=== PATIENT | female | born 1970 | race Caucasian/White ===

== ENCOUNTER 2017-10-11 16:08 | Emergency (ER) | payer BC, MEDICAID, SELFPAY ==
[2017-10-11 16:08] VITALS: BP 102/71; PULSE 91; RESP 20; TEMP 36.4; O2SAT 100; BMI 58.5
--- NOTE | 2017-10-11 16:54 | ED.VISSUMM ---
- ER Visit Summary Date of Service: 10/11/17 Chief Complaint: [] Left lower extremity poorly healing laceration occurred 2 weeks ago History of Present Illness: The patient is a 47 F [] history of end-stage renal disease on dialysis, has diabetes, takes Lantus does not routinely monitor her blood sugars, reports 2 weeks ago she simply fell on her left lower leg suffered laceration to what appears to the suprapatellar area and that has poorly healed been seen by her physicians as recently as yesterday she is on 2 different antibiotics started yesterday, she has been referred to wound care center to be seen next week she presents today that she just wanted her wound checked again today there is no change to the wound she does not usually check her blood sugar but she feels that her other health conditions have been stable including her diabetes and her dialysis which she has been going to without difficulty she is eating and drinking well she just is concerned the wound will not close Physical Examination: [] She is a large woman head neck chest unremarkable there is a left upper extremity dialysis fistula has a good thrill, the left lower leg there is a 2 cm laceration to it appears to be the superior patellar region, it has some surrounding redness it has some minimal pinkish drainage to it there is no fluctuance or crepitance no signs of foreign body there were some retained suture material which we had nursing remove she had full flexion-extension of her knee without difficulty there was no pain with range of motion to the knee there is no signs at this wound involved the knee structures or had any type of intra-articular involvement there is no crepitance subcu air, she indicates she is walking without difficulty, she indicates has been no change in the wound in any way, she has been using full-strength peroxide which I told her to stop using and rather use a mild cleansing soap Test Results: [] Emergency Department Course and Treatment: [] I explained to her we could do screening labs etc. x-rays etc. but she indicates that her general health has been good she does not wish to have the x-rays done she deferred that at this time we did cleanse the wound apply local wound care, she standing antibiotics we gave her special wound care ointment Aquacel to use she has been referred to Dr. deonna Puentes plastic surgery given the complicated nature of the wound and also to the local [facility] wound care center with the hope she can be seen sooner and she will return for change in symptoms and she is comfortable with this plan understands that she may require further management including further surgical debridement skin grafting or other therapies this is a complicated wound and she must follow-up with plastic surgery for wound care center, I further suggested that she keep a close her eyes and track her diabetes Treatment Plan: [] Disposition: [] Home stable Impression: [] Left lower extremity chronic poorly healing wound, history of diabetes end-stage renal disease This note was generated with [employer] dictation software. It may contain incorrect words, spelling, and punctuation that were not noted in review of the chart prior to signing ED Disposition - Plan for ED Patient: Chief Complaint: Laceration Instructions: ED Laceration All Referrals: Sheri Bolden [Primary Care Provider] - Marcell Goddard MD [STAFF PHYSICIAN] -
--- NOTE | 2017-10-11 17:00 | ED.DEP ---
ED Disposition - Plan for ED Patient: Chief Complaint: Laceration Instructions: ED Laceration All Referrals: Sheri Bolden [Primary Care Provider] - Marcell Goddard MD [STAFF PHYSICIAN] -
[2017-10-11 17:25] VITALS: BP 122/75; PULSE 88; RESP 16; O2SAT 99
[2017-10-11] MEDS: Mineral Oil/Petrolatum Cr 1.75oz Bottle 1 APPLIC TOPICAL (17:26)
== END 2017-10-11 17:27 | disposition home or self-care (01) ==
LOC: ED 17:03
PROVIDERS: Emergency Provider Emergency Medicine; Family Provider Internal Medicine; PCP Internal Medicine
DX: S81.812D Laceration without foreign body, left lower leg, subsequent encounter (principal); L03.116 Cellulitis of left lower limb; W19.XXXD Unspecified fall, subsequent encounter; Z79.4 Long term (current) use of insulin; Z79.899 Other long term (current) drug therapy; Z48.02 Encounter for removal of sutures; E11.22 Type 2 diabetes mellitus with diabetic chronic kidney disease; N18.6 End stage renal disease; Z99.2 Dependence on renal dialysis
CPT/HCPCS: 99282

== ENCOUNTER 2017-11-09 11:30 | Outpatient (RCR) | payer BC, MEDICAID, SELFPAY ==
[2017-10-26 09:29] VITALS: BP 131/106; PULSE 88; RESP 18; TEMP 37; BMI 58.5
[2017-10-26 11:50] LABS: Absolute Lymphocyte Count 0.66 X10^3/ul (0.83-4.51); Absolute Neutrophil Count 2.7 X10^3/uL (2.0-7.7); Basophil# 0.01 X10^3/uL; Basophil% 0.3 % (0-1); Eosinophil# 0.08 X10^3/uL; Eosinophils% 2.2 % (0-5); Hematocrit 29.3 % (37-47); Hemoglobin 9.8 g/dl (12.0-15.0); Lymphocyte # 0.66 X10^3/ul (4.0); Lymphocyte % 17.9 % (19-41); Mean Corp Hgb Conc 33.4 g/gl (32-36); Mean Corpuscular Hgb 32.5 pg (27.0-32.0); Mean Platelet Vol. 9.1 fl (6.2-12.0); Monocyte# 0.23 X10^3/uL; Monocyte% 6.2 % (0-10); Neutrophil % 73.1 % (47-70); Platelet Count 114 K/mm3 (150-450); RBC Distribution Width CV 14.2 % (11.6-14.6); RBC Distribution Width SD 47.6 fl (35.1-43.9); Red Blood Count 3.02 M/mm3 (4.2-5.4); White Blood Count 3.7 K/mm3 (4.4-11.0)
[2017-10-26 11:51] LABS: POSITIVE COUNT NO; POSITIVE DIFFERENTIAL NO; POSITIVE MORPHOLOGY NO
--- NOTE | 2017-10-26 12:08 | PCM.WC.HP ---
(1) Renal failure Status: Acute Current Visit: Yes Code(s): N19 - Unspecified kidney failure (2) Traumatic wound dehiscence Status: Acute Current Visit: Yes Code(s): T81.33XA - Disruption of traumatic injury wound repair, initial encounter (3) Unspecified open wound, left knee, initial encounter Status: Acute Current Visit: Yes Code(s): S81.002A - Unspecified open wound, left knee, initial encounter (4) Infected wound Status: Acute Current Visit: Yes Code(s): T14.8XXA - Other injury of unspecified body region, initial encounter; L08.9 - Local infection of the skin and subcutaneous tissue, unspecified (5) Malnutrition Status: Acute Current Visit: Yes Code(s): E46 - Unspecified protein-calorie malnutrition (6) Morbid obesity Status: Acute Current Visit: Yes Code(s): E66.01 - Morbid (severe) obesity due to excess calories (7) Cellulitis, leg Status: Acute Current Visit: Yes Code(s): L03.119 - Cellulitis of unspecified part of limb History of Present Illness Date of Service: 10/26/17 Chief Complaint: Follow-up open ulcer left knee History of Wound: 47-year-old white female history of a fall approximately 5 weeks ago was sent to the emergency room where they sutured it and it dehisced 2 weeks later. Has been seen at [facility] and was given gauze to cover patient sustained a huge infection and now has an area inferior to the ulcer that is tender and warm and the skin is swollen. Cultures were obtained today. Patient is also a renal failure on dialysis patient she is also diabetic. And she is also morbid obese. We will also check lab work for her pre-albumin hemoglobin A1c and a complete blood count. Past Medical History Past Medical History: Dehisced open ulcer left knee, renal failure morbid obesity diabetes Allergies/Adverse Reactions: Allergies No Known Allergies Allergy (Verified 10/26/17 09:54) Home Medications: Ambulatory Orders Medication Instructions Recorded Budesonide/Formoterol 160/4.5 2 puff INHALATION BID 12/25/13 [Symbicort 160/4.5 Mcg Inhaler (SP)] Hydroxychloroquine [Plaquenil] 400 mg PO DAILY 12/25/13 Insulin Detemir [Levemir Flextouch] 25 unit SQ BID 12/25/13 Montelukast [Singulair] 10 mg PO DAILY 12/25/13 Multivitamins,Ther W-Minerals 1 tablet PO DAILY 12/25/13 [Multivitamin With Minerals] Omeprazole [Prilosec] 20 mg PO BID 12/25/13 Albuterol IH (ProAir) [Proair Hfa 1 puff INHALATION Q4H PRN PRN 10/26/17 (SP)Vent Pts] Atorvastatin Calcium [Lipitor] mg PO QHS 10/26/17 Clonidine HCl mg PO TID 10/26/17 Folic Acid/Vit Bcomp,C [Renal-Gregoria 0.8 mg PO DAILY 10/26/17 Tablet] Furosemide [Lasix] 20 mg PO DAILY 10/26/17 Hydrocodone/Acetaminophen [[place] 1 each PO Q4H PRN PRN 10/26/17 5-325 Tablet] Tocilizumab [Actemra] 162 mg SQ QWEEK 10/26/17 Venlafaxine HCl [Effexor] mg PO DAILY 10/26/17 buPROPion tablets [Wellbutrin mg PO BID 10/26/17 tablets] busPIRone [Buspar] 5 mg PO DAILY PRN 10/26/17 traZODone [Desyrel] 50 mg PO QHS 10/26/17 Lives: Alone Smoking Status: Never smoker Review of Systems Constitutional: Denies: Chills, Fever Eyes: Denies: Blurred vision, Drainage, Pain HEENT: Denies: Difficulty Hearing, Difficulty Swallowing, Sore Throat, Visual Changes Cardiovascular: Denies: Chest Pain, Palpitations, Syncope Respiratory: Denies: Cough, Shortness of Breath Gastrointestinal: Denies: Abdominal Pain, Nausea, Vomiting Genitourinary: Denies: Dysuria, Frequency Musculoskeletal: Denies: Joint Pain, Muscle pain Skin: Denies: Jaundice, Rash Neurological: Denies: Balance problems, Change in Speech, Difficulty swallowing, Focal weakness Psychiatric: Denies: Anxiety, Depression Endocrine: Denies: Change in Body Habitus Hematologic/ Lymphatic: Denies: Adenopathy - Physical Exam Vital Signs Temp Pulse Resp BP 98.6 F 88 18 131/106 H 10/26/17 09:29 10/26/17 09:29 10/26/17 09:29 10/26/17 09:29 General: Oriented x3, Cooperative, Well developed HEENT: Atraumatic, PERRLA Oral: Moist Mucosa Neck: Supple, No JVD Lungs: Clear to auscultation, Normal air movement Cardiovascular: Regular rate, Regular Rhythm Abdomen: Bowel Sounds Present, Soft, Non Tender, No Hepato-splenomegaly Extremities: No clubbing, No edema Skin: Ulcer/ Wound - In ulcer left knee Wound Measurements and Assessment WC - Nurse 1 - General Ulcer Measurement Start: 10/26/17 09:28 Freq: Status: Active Protocol: Activity Type Activity Date Activity User E-Sign Co-Sign Detail Recorded Client Recorded Date Recorded By Document 10/26/17 09:29 [facility] [id number] 10/26/17 09:48 [facility] 10/26/17 09:29 Wound Center Nurse 1 [Ulcer Assessment] #1- LT KNEE -Combined with other wound No -Current Size (cm) - Length 1.7 -Current Size (cm) - Width 6.4 -Current Size (cm) - Depth 1.3 -Total Square Cm 10.88 -Date of Last Picture (Recall this 10/26/17 field) -Photo Taken Yes -Epithelialization None Present -Tunneling Yes -Tunneling Position (O'clock) 2 -Tunneling Distance (cm) 2.2 -Tunneling Position #2 (O'clock) 8 -Tunneling Distance #2 (cm) 3.9 -Exudate Amt Large (67-100%) -Exudate Type Serosanguineous -Wound Margin Distinct, Outline Attached -Granulation Amt Large (67-100%) -Granulation Quality Red -Slough/Fibrin Yes -Necrosis Amt Small (1-33%) -Necrotic Tissue Type Adherent Slough -Texture (Cassie-wound Skin Appearance) Scarring -Moisture (Cassie-wound Skin Appearance Dry/Scaly ) -Color (Cassie-wound Skin Appearance) Ecchymosis Erythema -Temperature (Cassie-wound Skin No Abnormality Appearance) (Pt Warm) -Tenderness on Palpation (Cassie-wound No Skin Appearance) -Ulcer Cleansing Rinsed/ Irrigated with Saline -Foul Odor after Cleansing No -Anesthetic Used 4% Lidocaine Solution 5% Lidocaine Gel [Edema Assessment] -Lower Limb Edema Present Yes -Right Calf (cm) 44 -Right Ankle (cm) 25 -Left Calf (cm) 45 -Left Ankle (cm) 26.6 WC - Nurse 2 - General Ulcer CM Notes Start: 10/26/17 09:28 Freq: Status: Active Protocol: Activity Type Activity Date Activity User E-Sign Co-Sign Detail Recorded Client Recorded Date Recorded By Document 10/26/17 10:11 MW [id number] 10/26/17 10:17 MW 10/26/17 10:11 Wound Center Nurse 2 [Procedure/Treatment] #1- LT KNEE -Time 10:12 -Correct Patient Yes -Correct Side, Site, Position Yes -Correct Procedure Yes -Procedure Performed Yes -Type of Procedure Debridement -Clinical Debridement Subcutaneous -Post Debridement Size (cm) - Length 1.7 -Post Debridement Size (cm) - Width 4.6 -Post Debridement Size (cm) - Depth 2.2 -Total Square Cm 7.82 -Wound/Ulcer Outcome Not Healed -Ulcer Cleansing Rinsed/ Irrigated with Saline -Foul Odor after Cleansing No -Bioengineered Tissue No -Bleeding Controlled with Pressure -Treatment Response Procedure Tolerated Well [See Physician Procedure note for Specifics] Pain Scale: 0-10 Numeric [Pain] -Is Patient Pain Free? Yes Musculoskeletal: No Tenderness to Palpation of Joints or Extremities Lymphatic: No Cervical, Supraclavicular, or Inguinal Adenopathy Neurological: Cranial nerves II-XII grossly intact, Neuro grossly intact Psych/Mental Status: Normal Affect, Appropriate Debridement Note Post-Debridement Measurements/Treatment - Nurse 2 - General Ulcer CM Notes Start: 10/26/17 09:28 Freq: Status: Active Protocol: Activity Type Activity Date Activity User E-Sign Co-Sign Detail Recorded Client Recorded Date Recorded By Document 10/26/17 10:11 MW [id number] 10/26/17 10:17 MW 10/26/17 10:11 Wound Center Nurse 2 #1- LT KNEE -Time 10:12 -Correct Patient Yes -Correct Side, Site, Position Yes -Correct Procedure Yes -Procedure Performed Yes -Type of Procedure Debridement -Clinical Debridement Subcutaneous -Post Debridement Size (cm) - Length 1.7 -Post Debridement Size (cm) - Width 4.6 -Post Debridement Size (cm) - Depth 2.2 -Total Square Cm 7.82 -Wound/Ulcer Outcome Not Healed -Ulcer Cleansing Rinsed/ Irrigated with Saline -Foul Odor after Cleansing No -Bioengineered Tissue No -Bleeding Controlled with Pressure -Treatment Response Procedure Tolerated Well Pain Scale: 0-10 Numeric Is Patient Pain Free? Yes Wound debrided: Open ulcer knee Type of Debridement: Excisional debridement Anesthesia Used: 5% Lidocaine Gel Depth: Down to and including healthy tissue, in the subcutaneous layer, to muscle Percentage of wound debrided: 100 Instrument Used: 5mm curette Tissue Removed: Fibrin Severity: Limited To Skin Breakdown Amount of bleeding with debridement: Mild Bleeding Controlled with: Compression and gauze Patient tolerated procedure well Assessment/Plan Pre-albumin hemoglobin A1c the and aerobic and anaerobic cultures obtained Active Problems Renal failure (Acute) Traumatic wound dehiscence (Acute) Unspecified open wound, left knee, initial encounter (Acute) Infected wound (Acute) Malnutrition (Acute) Morbid obesity (Acute) Cellulitis, leg (Acute) Assessment: Open ulcer left knee. Dehiscence of a left knee. Morbid obesity. Renal failure. Malnutrition. Infected left knee. Cellulitis left knee Plan: Wash leg with Hibiclens. Pack with Aquacel silver moistened thick layer of gauze ABD Romeo wrap to the area from toes to knee. Follow-up one week
--- NOTE | 2017-10-26 12:12 | HP.PCM_ITS ---
(1) Renal failure Status: Acute Current Visit: Yes Code(s): N19 - Unspecified kidney failure (2) Traumatic wound dehiscence Status: Acute Current Visit: Yes Code(s): T81.33XA - Disruption of traumatic injury wound repair, initial encounter (3) Unspecified open wound, left knee, initial encounter Status: Acute Current Visit: Yes Code(s): S81.002A - Unspecified open wound , left knee, initial encounter (4) Infected wound Status: Acute Current Visit: Yes Code(s): T14.8XXA - Other injury of unspecified body region, initial encounter; L08.9 - Local infection of the skin and subcutaneous tissue, unspecified (5) Malnutrition Status: Acute Current Visit: Yes Code(s): E46 - Unspecified protein-calorie malnutrition (6) Morbid obesity Status: Acute Current Visit: Yes Code(s): E66.01 - Morbid (severe) obesity due to excess calories (7) Cellulitis, leg Status: Acute Current Visit: Yes Code(s): L03.119 - Cellulitis of unspecified part of limb History of Present Illness Date of Service: 10/26/17 Chief Complaint: Follow-up open ulcer left knee History of Wound: 47-year-old white female history of a fall approximately 5 weeks ago was sent to the emergency room where they sutured it and it dehisced 2 weeks later. Has been seen at [facility] and was given gauze to cover patient sustained a huge infection and now has an area inferior to the ulcer that is tender and warm and the skin is swollen. Cultures were obtained today. Patient is also a renal failure on dialysis patient she is also diabetic. And she is also morbid obese. We will also check lab work for her pre-albumin hemoglobin A1c and a complete blood count. Past Medical History Past Medical History: Dehisced open ulcer left knee, renal failure morbid obesity diabetes Allergies/Adverse Reactions: Allergies No Known Allergies Allergy (Verified 10/26/17 09:54) Home Medications: Ambulatory Orders Medication Instructions Recorded Budesonide/Formoterol 160/4.5 2 puff INHALATION BID 12/25/13 [Symbicort 160/4.5 Mcg Inhaler (SP)] Hydroxychloroquine [Plaquenil] 400 mg PO DAILY 12/25/13 Insulin Detemir [Levemir Flextouch] 25 unit SQ BID 12/25/13 Montelukast [Singulair] 10 mg PO DAILY 12/25/13 Multivitamins,Ther W-Minerals 1 tablet PO DAILY 12/25/13 [Multivitamin With Minerals] Omeprazole [Prilosec] 20 mg PO BID 12/25/13 Albuterol IH (ProAir) [Proair Hfa 1 puff INHALATION Q4H PRN PRN 10/26/17 (SP)Vent Pts] Atorvastatin Calcium [Lipitor] mg PO QHS 10/26/17 Clonidine HCl mg PO TID 10/26/17 Folic Acid/Vit Bcomp,C [Renal-Gregoria 0.8 mg PO DAILY 10/26/17 Tablet] Furosemide [Lasix] 20 mg PO DAILY 10/26/17 Hydrocodone/Acetaminophen [[place] 1 each PO Q4H PRN PRN 10/26/17 5-325 Tablet] Tocilizumab [Actemra] 162 mg SQ QWEEK 10/26/17 Venlafaxine HCl [Effexor] mg PO DAILY 10/26/17 buPROPion tablets [Wellbutrin mg PO BID 10/26/17 tablets] busPIRone [Buspar] 5 mg PO DAILY PRN 10/26/17 traZODone [Desyrel] 50 mg PO QHS 10/26/17 Lives: Alone Smoking Status: Never smoker Review of Systems Constitutional: Denies: Chills, Fever Eyes: Denies: Blurred vision, Drainage, Pain HEENT: Denies: Difficulty Hearing, Difficulty Swallowing, Sore Throat, Visual Changes Cardiovascular: Denies: Chest Pain, Palpitations, Syncope Respiratory: Denies: Cough, Shortness of Breath Gastrointestinal: Denies: Abdominal Pain, Nausea, Vomiting Genitourinary: Denies: Dysuria, Frequency Musculoskeletal: Denies: Joint Pain, Muscle pain Skin: Denies: Jaundice, Rash Neurological: Denies: Balance problems, Change in Speech, Difficulty swallowing , Focal weakness Psychiatric: Denies: Anxiety, Depression Endocrine: Denies: Change in Body Habitus Hematologic/ Lymphatic: Denies: Adenopathy - Physical Exam Vital Signs Temp Pulse Resp BP 98.6 F 88 18 131/106 H 10/26/17 09:29 10/26/17 09:29 10/26/17 09:29 10/26/17 09:29 General: Oriented x3, Cooperative, Well developed HEENT: Atraumatic, PERRLA Oral: Moist Mucosa Neck: Supple, No JVD Lungs: Clear to auscultation, Normal air movement Cardiovascular: Regular rate, Regular Rhythm Abdomen: Bowel Sounds Present, Soft, Non Tender, No Hepato-splenomegaly Extremities: No clubbing, No edema Skin: Ulcer/ Wound - In ulcer left knee Wound Measurements and Assessment WC - Nurse 1 - General Ulcer Measurement Start: 10/26/17 09:28 Freq: Status: Active Protocol: Activity Type Activity Date Activity User E-Sign Co-Sign Detail Recorded Client Recorded Date Recorded By Document 10/26/17 09:[address] [facility] [id number] 10/26/17 09:[address] [facility] 10/26/17 09:29 Wound Center Nurse 1 [Ulcer Assessment] #1- LT KNEE -Combined with other wound No -Current Size (cm) - Length 1.7 -Current Size (cm) - Width 6.4 -Current Size (cm) - Depth 1.3 -Total Square Cm 10.88 -Date of Last Picture (Recall this 10/26/17 field) -Photo Taken Yes -Epithelialization None Present -Tunneling Yes -Tunneling Position (O'clock) 2 -Tunneling Distance (cm) 2.2 -Tunneling Position #2 (O'clock) 8 -Tunneling Distance #2 (cm) 3.9 -Exudate Amt Large (67-100%) -Exudate Type Serosanguineous -Wound Margin Distinct, Outline Attached -Granulation Amt Large (67-100%) -Granulation Quality Red -Slough/Fibrin Yes -Necrosis Amt Small (1-33%) -Necrotic Tissue Type Adherent Slough -Texture (Cassie-wound Skin Appearance) Scarring -Moisture (Cassie-wound Skin Appearance Dry/Scaly ) -Color (Cassie-wound Skin Appearance) Ecchymosis Erythema -Temperature (Cassie-wound Skin No Abnormality Appearance) (Pt Warm) -Tenderness on Palpation (Cassie-wound No Skin Appearance) -Ulcer Cleansing Rinsed/ Irrigated with Saline -Foul Odor after Cleansing No -Anesthetic Used 4% Lidocaine Solution 5% Lidocaine Gel [Edema Assessment] -Lower Limb Edema Present Yes -Right Calf (cm) 44 -Right Ankle (cm) 25 -Left Calf (cm) 45 -Left Ankle (cm) 26.6 WC - Nurse 2 - General Ulcer CM Notes Start: 10/26/17 09:28 Freq: Status: Active Protocol: Activity Type Activity Date Activity User E-Sign Co-Sign Detail Recorded Client Recorded Date Recorded By Document 10/26/17 10:11 MW [id number] 10/26/17 10:17 MW 10/26/17 10:11 Wound Center Nurse 2 [Procedure/Treatment] #1- LT KNEE -Time 10:12 -Correct Patient Yes -Correct Side, Site, Position Yes -Correct Procedure Yes -Procedure Performed Yes -Type of Procedure Debridement -Clinical Debridement Subcutaneous -Post Debridement Size (cm) - Length 1.7 -Post Debridement Size (cm) - Width 4.6 -Post Debridement Size (cm) - Depth 2.2 -Total Square Cm 7.82 -Wound/Ulcer Outcome Not Healed -Ulcer Cleansing Rinsed/ Irrigated with Saline -Foul Odor after Cleansing No -Bioengineered Tissue No -Bleeding Controlled with Pressure -Treatment Response Procedure Tolerated Well [See Physician Procedure note for Specifics] Pain Scale: 0-10 Numeric [Pain] -Is Patient Pain Free? Yes Musculoskeletal: No Tenderness to Palpation of Joints or Extremities Lymphatic: No Cervical, Supraclavicular, or Inguinal Adenopathy Neurological: Cranial nerves II-XII grossly intact, Neuro grossly intact Psych/Mental Status: Normal Affect, Appropriate Debridement Note Post-Debridement Measurements/Treatment - Nurse 2 - General Ulcer CM Notes Start: 10/26/17 09:28 Freq: Status: Active Protocol: Activity Type Activity Date Activity User E-Sign Co-Sign Detail Recorded Client Recorded Date Recorded By Document 10/26/17 10:11 MW [id number] 10/26/17 10:17 MW 10/26/17 10:11 Wound Center Nurse 2 #1- LT KNEE -Time 10:12 -Correct Patient Yes -Correct Side, Site, Position Yes -Correct Procedure Yes -Procedure Performed Yes -Type of Procedure Debridement -Clinical Debridement Subcutaneous -Post Debridement Size (cm) - Length 1.7 -Post Debridement Size (cm) - Width 4.6 -Post Debridement Size (cm) - Depth 2.2 -Total Square Cm 7.82 -Wound/Ulcer Outcome Not Healed -Ulcer Cleansing Rinsed/ Irrigated with Saline -Foul Odor after Cleansing No -Bioengineered Tissue No -Bleeding Controlled with Pressure -Treatment Response Procedure Tolerated Well Pain Scale: 0-10 Numeric Is Patient Pain Free? Yes Wound debrided: Open ulcer knee Type of Debridement: Excisional debridement Anesthesia Used: 5% Lidocaine Gel Depth: Down to and including healthy tissue, in the subcutaneous layer, to muscle Percentage of wound debrided: 100 Instrument Used: 5mm curette Tissue Removed: Fibrin Severity: Limited To Skin Breakdown Amount of bleeding with debridement: Mild Bleeding Controlled with: Compression and gauze Patient tolerated procedure well Assessment/Plan Pre-albumin hemoglobin A1c the and aerobic and anaerobic cultures obtained Active Problems Renal failure (Acute) Traumatic wound dehiscence (Acute) Unspecified open wound, left knee, initial encounter (Acute) Infected wound (Acute) Malnutrition (Acute) Morbid obesity (Acute) Cellulitis, leg (Acute) Assessment: Open ulcer left knee. Dehiscence of a left knee. Morbid obesity. Renal failure. Malnutrition. Infected left knee. Cellulitis left knee Plan: Wash leg with Hibiclens. Pack with Aquacel silver moistened thick layer of gauze ABD Romeo wrap to the area from toes to knee. Follow-up one week
[2017-10-26 12:17] LABS: Prealbumin 45.4 mg/dL (20.0-40.0)
[2017-10-26 12:28] LABS: Hemoglobin A1c 7.7 % (4.2-6.3)
[2017-11-02 11:22] VITALS: BP 126/85; PULSE 87; RESP 18; TEMP 36.6; BMI 58.5
--- NOTE | 2017-11-02 12:34 | PCM.WC.PN ---
(1) Renal failure Status: Acute Current Visit: Yes Qualifiers: Renal failure chronicity: chronic Code(s): N19 - Unspecified kidney failure (2) Traumatic wound dehiscence Status: Acute Current Visit: Yes Qualifiers: Encounter type: subsequent encounter Qualified Code(s): T81.33XD - Disruption of traumatic injury wound repair, subsequent encounter Code(s): T81.33XA - Disruption of traumatic injury wound repair, initial encounter (3) Unspecified open wound, left knee, initial encounter Status: Acute Current Visit: No Code(s): S81.002A - Unspecified open wound, left knee, initial encounter (4) Infected wound Status: Acute Current Visit: Yes Code(s): T14.8XXA - Other injury of unspecified body region, initial encounter; L08.9 - Local infection of the skin and subcutaneous tissue, unspecified (5) Malnutrition Status: Acute Current Visit: No Code(s): E46 - Unspecified protein-calorie malnutrition (6) Morbid obesity Status: Acute Current Visit: Yes Code(s): E66.01 - Morbid (severe) obesity due to excess calories (7) Cellulitis, leg Status: Acute Current Visit: Yes Code(s): L03.119 - Cellulitis of unspecified part of limb Type of Wound Date of Service: 11/02/17 Chief Complaint: Follow-up open ulcer left knee History of Wound: 47-year-old white female history of a fall approximately 5 weeks ago was sent to the emergency room where they sutured it and it dehisced 2 weeks later. Has been seen at [place] [facility] and was given gauze to cover patient sustained a huge infection and now has an area inferior to the ulcer that is tender and warm and the skin is swollen. Cultures were obtained today. Patient is also a renal failure on dialysis patient she is also diabetic. And she is also morbid obese. We will also check lab work for her pre-albumin hemoglobin A1c and a complete blood count. Progress of Wound: The wound is smaller in size but she has developed a tunnel at 6:00 that is quite big. The pain adjacent to the wound is improving. She does have anaerobes and aerobic bacteria growing. We will currently start her on Augmentin and metronidazole for that. She is still going to continue packing with the Aquacel silver and we will order a wound VAC for her. - Physical Exam Vital Signs Temp Pulse Resp BP 97.9 F 87 18 126/85 H 11/02/17 11:22 11/02/17 11:22 11/02/17 11:22 11/02/17 11:22 General: Oriented x3, Cooperative, Well developed HEENT: Atraumatic, PERRLA Oral: Moist Mucosa Neck: Supple, No JVD Lungs: Clear to auscultation, Normal air movement Cardiovascular: Regular rate, Regular Rhythm Abdomen: Bowel Sounds Present, Soft, Non Tender, No Hepato-splenomegaly Extremities: No clubbing, No edema Skin: Ulcer/ Wound - Left knee wound Wound Measurements and Assessment WC - Nurse 1 - General Ulcer Measurement Start: 10/26/17 09:28 Freq: Status: Active Protocol: Activity Type Activity Date Activity User E-Sign Co-Sign Detail Recorded Client Recorded Date Recorded By Document 11/02/17 11:22 DL [id number] 11/02/17 11:32 DL 11/02/17 11:22 Wound Center Nurse 1 [Ulcer Assessment] #1- LT KNEE -Current Size (cm) - Length 1.5 -Current Size (cm) - Width 4 -Current Size (cm) - Depth 1.5 -Total Square Cm 6.0 -Photo Taken No -Undermining/Tunneling Starts (O' 6 clock) -Undermining/Tunneling Ends (O'clock) 7 -Maximum Distance (cm) 3.3 -Circular Undermining No -Exudate Type Serosanguineous -Wound Margin Distinct, Outline Attached -Granulation Amt Large (67-100%) -Granulation Quality Red -Necrosis Amt Small (1-33%) -Necrotic Tissue Type Adherent Slough -Texture (Cassie-wound Skin Appearance) Localized Edema Scarring -Moisture (Cassie-wound Skin Appearance No Abnormality ) -Color (Cassie-wound Skin Appearance) Rubor -Temperature (Cassie-wound Skin No Abnormality Appearance) (Pt Warm) -Ulcer Cleansing Wound Cleanser -Foul Odor after Cleansing No -Anesthetic Used 4% Lidocaine Solution [Edema Assessment] -Left Calf (cm) 43.5 -Left Ankle (cm) 23 WC - Nurse 2 - General Ulcer CM Notes Start: 10/26/17 09:28 Freq: Status: Active Protocol: Activity Type Activity Date Activity User E-Sign Co-Sign Detail Recorded Client Recorded Date Recorded By Document 11/02/17 11:42 MW [id number] 11/02/17 11:53 MW 11/02/17 11:42 Wound Center Nurse 2 [Procedure/Treatment] #1- LT KNEE -Time 11:42 -Correct Patient Yes -Correct Side, Site, Position Yes -Correct Procedure Yes -Procedure Performed Yes -Type of Procedure Debridement -Clinical Debridement Subcutaneous -Post Debridement Size (cm) - Length 1.2 -Post Debridement Size (cm) - Width 4.0 -Post Debridement Size (cm) - Depth 1.7 -Total Square Cm 4.80 -Wound/Ulcer Outcome Not Healed -Ulcer Cleansing Rinsed/ Irrigated with Saline -Foul Odor after Cleansing No -Bioengineered Tissue No -Bleeding Controlled with Pressure -Other tunnel @ 6 - 6. 4cm -Treatment Response Procedure Tolerated Well [See Physician Procedure note for Specifics] Pain Scale: 0-10 Numeric [Pain] -Is Patient Pain Free? Yes Musculoskeletal: No Tenderness to Palpation of Joints or Extremities Lymphatic: No Cervical, Supraclavicular, or Inguinal Adenopathy Neurological: Cranial nerves II-XII grossly intact, Neuro grossly intact Psych/Mental Status: Normal Affect, Appropriate Debridement Note Post-Debridement Measurements/Treatment WC - Nurse 2 - General Ulcer CM Notes Start: 10/26/17 09:28 Freq: Status: Active Protocol: Activity Type Activity Date Activity User E-Sign Co-Sign Detail Recorded Client Recorded Date Recorded By Document 10/26/17 10:11 MW [id number] 10/26/17 10:17 MW Document 11/02/17 11:42 MW [id number] 11/02/17 11:53 MW 10/26/17 11/02/17 10:11 11:42 Wound Center Nurse 2 #1- LT KNEE -Time 10:12 11:42 -Correct Patient Yes Yes -Correct Side, Site, Position Yes Yes -Correct Procedure Yes Yes -Procedure Performed Yes Yes -Type of Procedure Debridement Debridement -Clinical Debridement Subcutaneous Subcutaneous -Post Debridement Size (cm) - Length 1.7 1.2 -Post Debridement Size (cm) - Width 4.6 4.0 -Post Debridement Size (cm) - Depth 2.2 1.7 -Total Square Cm 7.82 4.80 -Wound/Ulcer Outcome Not Healed Not Healed -Ulcer Cleansing Rinsed/ Rinsed/ Irrigated with Irrigated with Saline Saline -Foul Odor after Cleansing No No -Bioengineered Tissue No No -Bleeding Controlled with Pressure Pressure -Other tunnel @ 6 - 6. 4cm -Treatment Response Procedure Procedure Tolerated Well Tolerated Well Pain Scale: 0-10 Numeric Is Patient Pain Free? Yes Yes Wound debrided: Left knee wound Type of Debridement: Excisional debridement Anesthesia Used: 5% Lidocaine Gel Depth: Down to and including healthy tissue, in the subcutaneous layer, to muscle Instrument Used: 3mm curette Tissue Removed: Fibrin Amount of bleeding with debridement: Moderate Bleeding Controlled with: Compression and gauze Patient tolerated procedure well Assessment/Plan Active Problems Renal failure (Acute) Traumatic wound dehiscence (Acute) Infected wound (Acute) Morbid obesity (Acute) Cellulitis, leg (Acute) Assessment: Open ulcer left knee. Dehiscence of a left knee. Morbid obesity. Renal failure. Malnutrition. Infected left knee. Cellulitis left knee Plan: Wash leg with Hibiclens. Pack with Aquacel silver moistened thick layer of gauze ABD Romeo wrap to the area from toes to knee. As soon as she receives the wound VAC she is to call us and make arrangements. Chart the antibiotics and the antimicrobials. Follow-up one week
[2017-11-07 15:14] VITALS: BP 112/68; PULSE 90; RESP 18; TEMP 36.4; BMI 58.5
[2017-11-09 12:01] VITALS: BP 157/113; PULSE 81; RESP 18; TEMP 36.6; BMI 58.5
--- NOTE | 2017-11-09 12:31 | PCM.WC.PN ---
(1) Renal failure Status: Acute Current Visit: Yes Qualifiers: Renal failure chronicity: chronic Code(s): N19 - Unspecified kidney failure (2) Traumatic wound dehiscence Status: Acute Current Visit: Yes Qualifiers: Encounter type: subsequent encounter Qualified Code(s): T81.33XD - Disruption of traumatic injury wound repair, subsequent encounter Code(s): T81.33XA - Disruption of traumatic injury wound repair, initial encounter (3) Unspecified open wound, left knee, initial encounter Status: Acute Current Visit: No Code(s): S81.002A - Unspecified open wound, left knee, initial encounter (4) Infected wound Status: Acute Current Visit: Yes Code(s): T14.8XXA - Other injury of unspecified body region, initial encounter; L08.9 - Local infection of the skin and subcutaneous tissue, unspecified (5) Malnutrition Status: Acute Current Visit: No Code(s): E46 - Unspecified protein-calorie malnutrition (6) Morbid obesity Status: Acute Current Visit: Yes Code(s): E66.01 - Morbid (severe) obesity due to excess calories (7) Cellulitis, leg Status: Acute Current Visit: Yes Code(s): L03.119 - Cellulitis of unspecified part of limb Type of Wound Chief Complaint: Follow-up open ulcer left knee History of Wound: 47-year-old white female history of a fall approximately 5 weeks ago was sent to the emergency room where they sutured it and it dehisced 2 weeks later. Has been seen at [place] [facility] and was given gauze to cover patient sustained a huge infection and now has an area inferior to the ulcer that is tender and warm and the skin is swollen. Cultures were obtained today. Patient is also a renal failure on dialysis patient she is also diabetic. And she is also morbid obese. We will also check lab work for her pre-albumin hemoglobin A1c and a complete blood count. Progress of Wound: The wound is smaller in size but she has developed a tunnel at 6:00 that was 6 cm is down to 1 cm . The pain adjacent to the wound is improving. She does have anaerobes and aerobic bacteria growing. We will currently start her on Augmentin and metronidazole for that. She started the wound VAC on Sunday and is already seeing improvement at 125 mmHg were can increase it to 175 mmHg and have her come in 1 week for change. - Physical Exam Vital Signs Temp Pulse Resp BP 97.8 F 81 18 157/113 H 11/09/17 12:01 11/09/17 12:01 11/09/17 12:01 11/09/17 12:01 General: Oriented x3, Cooperative, Well developed HEENT: Atraumatic, PERRLA Oral: Moist Mucosa Neck: Supple, No JVD Lungs: Clear to auscultation, Normal air movement Cardiovascular: Regular rate, Regular Rhythm Abdomen: Bowel Sounds Present, Soft, Non Tender, No Hepato-splenomegaly, Obese Extremities: No clubbing, No edema Skin: Ulcer/ Wound - Left knee wound Wound Measurements and Assessment WC - Nurse 1 - General Ulcer Measurement Start: 10/26/17 09:28 Freq: Status: Active Protocol: Activity Type Activity Date Activity User E-Sign Co-Sign Detail Recorded Client Recorded Date Recorded By Document 11/07/17 15:14 [id number] 11/07/17 15:16 Document 11/09/17 12:01 [id number] 11/09/17 12:04 11/07/17 11/09/17 15:14 12:01 Wound Center Nurse 1 [Ulcer Assessment] #1- LT KNEE -Combined with other wound No No -Current Size (cm) - Length 1.1 0.9 -Current Size (cm) - Width 3.0 3.2 -Current Size (cm) - Depth 1.5 1.2 -Total Square Cm 3.30 2.88 -Photo Taken No No -Epithelialization Medium 34-66% Medium 34-66% -Tunneling No No -Undermining/Tunneling No No -Circular Undermining No No -Exudate Amt Medium (34-66%) Medium (34-66%) -Exudate Type Serosanguineous Sanguineous -Wound Margin Flat & Intact Thickened & Rolled Under -Granulation Amt Large (67-100%) Large (67-100%) -Granulation Quality Red [place] Red -Slough/Fibrin Yes No -Necrosis Amt Small (1-33%) -Necrotic Tissue Type Adherent Slough -Structure Exposed N/A -Texture (Cassie-wound Skin Appearance) Assessed Assessed Localized Edema -Moisture (Cassie-wound Skin Appearance Assessed Assessed ) Dry/Scaly Maceration -Color (Cassie-wound Skin Appearance) Assessed Assessed -Temperature (Cassie-wound Skin No Abnormality No Abnormality Appearance) (Pt Warm) (Pt Warm) -Tenderness on Palpation (Cassie-wound No No Skin Appearance) -Ulcer Cleansing Wound Cleanser Rinsed/ Irrigated with Saline -Foul Odor after Cleansing No No -Anesthetic Used 4% Lidocaine Solution [Edema Assessment] -Lower Limb Edema Present Yes -Left Calf (cm) 44 -Left Ankle (cm) 23.5 WC - Nurse 2 - General Ulcer CM Notes Start: 10/26/17 09:28 Freq: Status: Active Protocol: Activity Type Activity Date Activity User E-Sign Co-Sign Detail Recorded Client Recorded Date Recorded By Document 11/09/17 12:10 MW [id number] 11/09/17 12:13 MW 11/09/17 12:10 Wound Center Nurse 2 [Procedure/Treatment] #1- LT KNEE -Time 12:11 -Correct Patient Yes -Correct Side, Site, Position Yes -Correct Procedure Yes -Procedure Performed Yes -Type of Procedure Debridement -Clinical Debridement Subcutaneous -Post Debridement Size (cm) - Length 0.8 -Post Debridement Size (cm) - Width 3.0 -Post Debridement Size (cm) - Depth 1.0 -Total Square Cm 2.40 -Wound/Ulcer Outcome Not Healed -Ulcer Cleansing Rinsed/ Irrigated with Saline -Foul Odor after Cleansing No -Bioengineered Tissue No -Bleeding Controlled with Pressure -Treatment Response Procedure Tolerated Well [See Physician Procedure note for Specifics] Pain Scale: 0-10 Numeric [Pain] -Is Patient Pain Free? Yes Musculoskeletal: No Tenderness to Palpation of Joints or Extremities Lymphatic: No Cervical, Supraclavicular, or Inguinal Adenopathy Neurological: Cranial nerves II-XII grossly intact, Neuro grossly intact Psych/Mental Status: Normal Affect, Appropriate Debridement Note Post-Debridement Measurements/Treatment - Nurse 2 - General Ulcer CM Notes Start: 10/26/17 09:28 Freq: Status: Active Protocol: Activity Type Activity Date Activity User E-Sign Co-Sign Detail Recorded Client Recorded Date Recorded By Document 10/26/17 10:11 MW [id number] 10/26/17 10:17 MW Document 11/02/17 11:42 MW [id number] 11/02/17 11:53 MW Document 11/09/17 12:10 MW [id number] 11/09/17 12:13 MW 10/26/17 11/02/17 11/09/17 10:11 11:42 12:10 Wound Center Nurse 2 #1- LT KNEE -Time 10:12 11:42 12:11 -Correct Patient Yes Yes Yes -Correct Side, Site, Position Yes Yes Yes -Correct Procedure Yes Yes Yes -Procedure Performed Yes Yes Yes -Type of Procedure Debridement Debridement Debridement -Clinical Debridement Subcutaneous Subcutaneous Subcutaneous -Post Debridement Size (cm) - Length 1.7 1.2 0.8 -Post Debridement Size (cm) - Width 4.6 4.0 3.0 -Post Debridement Size (cm) - Depth 2.2 1.7 1.0 -Total Square Cm 7.82 4.80 2.40 -Wound/Ulcer Outcome Not Healed Not Healed Not Healed -Ulcer Cleansing Rinsed/ Rinsed/ Rinsed/ Irrigated with Irrigated with Irrigated with Saline Saline Saline -Foul Odor after Cleansing No No No -Bioengineered Tissue No No No -Bleeding Controlled with Pressure Pressure Pressure -Other tunnel @ 6 - 6. 4cm -Treatment Response Procedure Procedure Procedure Tolerated Well Tolerated Well Tolerated Well Pain Scale: 0-10 Numeric Is Patient Pain Free? Yes Yes Yes Wound debrided: Left knee wound Type of Debridement: Excisional debridement Anesthesia Used: 5% Lidocaine Gel Depth: Down to and including healthy tissue, in the subcutaneous layer Instrument Used: 7mm curette Tissue Removed: Fibrin Severity: Limited To Skin Breakdown Amount of bleeding with debridement: Moderate Bleeding Controlled with: Compression and gauze Patient tolerated procedure well Assessment/Plan Active Problems Renal failure (Acute) Traumatic wound dehiscence (Acute) Infected wound (Acute) Morbid obesity (Acute) Cellulitis, leg (Acute) Assessment: Open ulcer left knee. Dehiscence of a left knee. Morbid obesity. Renal failure. Malnutrition. Infected left knee. Cellulitis left knee Plan: Wash leg with Hibiclens. Increase wound VAC to 175 mmHg. Continue the antibiotics and the antimicrobials. Follow-up one week
--- NOTE | 2017-11-09 12:38 | PN.PCM_ITS ---
(1) Renal failure Status: Acute Current Visit: Yes Qualifiers: Renal failure chronicity: chronic Code(s): N19 - Unspecified kidney failure (2) Traumatic wound dehiscence Status: Acute Current Visit: Yes Qualifiers: Encounter type: subsequent encounter Qualified Code(s): T81.33XD - Disruption of traumatic injury wound repair, subsequent encounter Code(s): T81.33XA - Disruption of traumatic injury wound repair, initial encounter (3) Unspecified open wound, left knee, initial encounter Status: Acute Current Visit: No Code(s): S81.002A - Unspecified open wound, left knee, initial encounter (4) Infected wound Status: Acute Current Visit: Yes Code(s): T14.8XXA - Other injury of unspecified body region, initial encounter; L08.9 - Local infection of the skin and subcutaneous tissue, unspecified (5) Malnutrition Status: Acute Current Visit: No Code(s): E46 - Unspecified protein-calorie malnutrition (6) Morbid obesity Status: Acute Current Visit: Yes Code(s): E66.01 - Morbid (severe) obesity due to excess calories (7) Cellulitis, leg Status: Acute Current Visit: Yes Code(s): L03.119 - Cellulitis of unspecified part of limb Type of Wound Chief Complaint: Follow-up open ulcer left knee History of Wound: 47-year-old white female history of a fall approximately 5 weeks ago was sent to the emergency room where they sutured it and it dehisced 2 weeks later. Has been seen at [place] [facility] and was given gauze to cover patient sustained a huge infection and now has an area inferior to the ulcer that is tender and warm and the skin is swollen. Cultures were obtained today. Patient is also a renal failure on dialysis patient she is also diabetic. And she is also morbid obese. We will also check lab work for her pre-albumin hemoglobin A1c and a complete blood count. Progress of Wound: The wound is smaller in size but she has developed a tunnel at 6:00 that was 6 cm is down to 1 cm . The pain adjacent to the wound is improving. She does have anaerobes and aerobic bacteria growing. We will currently start her on Augmentin and metronidazole for that. She started the wound VAC on Sunday and is already seeing improvement at 125 mmHg were can increase it to 175 mmHg and have her come in 1 week for change. - Physical Exam Vital Signs Temp Pulse Resp BP 97.8 F 81 18 157/113 H 11/09/17 12:01 11/09/17 12:01 11/09/17 12:01 11/09/17 12:01 General: Oriented x3, Cooperative, Well developed HEENT: Atraumatic, PERRLA Oral: Moist Mucosa Neck: Supple, No JVD Lungs: Clear to auscultation, Normal air movement Cardiovascular: Regular rate, Regular Rhythm Abdomen: Bowel Sounds Present, Soft, Non Tender, No Hepato-splenomegaly, Obese Extremities: No clubbing, No edema Skin: Ulcer/ Wound - Left knee wound Wound Measurements and Assessment WC - Nurse 1 - General Ulcer Measurement Start: 10/26/17 09:28 Freq: Status: Active Protocol: Activity Type Activity Date Activity User E-Sign Co-Sign Detail Recorded Client Recorded Date Recorded By Document 11/07/17 15:14 [id number] 11/07/17 15:16 Document 11/09/17 12:01 [id number] 11/09/17 12:04 11/07/17 11/09/17 15:14 12:01 Wound Center Nurse 1 [Ulcer Assessment] #1- LT KNEE -Combined with other wound No No -Current Size (cm) - Length 1.1 0.9 -Current Size (cm) - Width 3.0 3.2 -Current Size (cm) - Depth 1.5 1.2 -Total Square Cm 3.30 2.88 -Photo Taken No No -Epithelialization Medium 34-66% Medium 34-66% -Tunneling No No -Undermining/Tunneling No No -Circular Undermining No No -Exudate Amt Medium (34-66%) Medium (34-66%) -Exudate Type Serosanguineous Sanguineous -Wound Margin Flat & Intact Thickened & Rolled Under -Granulation Amt Large (67-100%) Large (67-100%) -Granulation Quality Red [place] Red -Slough/Fibrin Yes No -Necrosis Amt Small (1-33%) -Necrotic Tissue Type Adherent Slough -Structure Exposed N/A -Texture (Cassie-wound Skin Appearance) Assessed Assessed Localized Edema -Moisture (Cassie-wound Skin Appearance Assessed Assessed ) Dry/Scaly Maceration -Color (Cassie-wound Skin Appearance) Assessed Assessed -Temperature (Cassie-wound Skin No Abnormality No Abnormality Appearance) (Pt Warm) (Pt Warm) -Tenderness on Palpation (Cassie-wound No No Skin Appearance) -Ulcer Cleansing Wound Cleanser Rinsed/ Irrigated with Saline -Foul Odor after Cleansing No No -Anesthetic Used 4% Lidocaine Solution [Edema Assessment] -Lower Limb Edema Present Yes -Left Calf (cm) 44 -Left Ankle (cm) 23.5 WC - Nurse 2 - General Ulcer CM Notes Start: 10/26/17 09:28 Freq: Status: Active Protocol: Activity Type Activity Date Activity User E-Sign Co-Sign Detail Recorded Client Recorded Date Recorded By Document 11/09/17 12:10 MW [id number] 11/09/17 12:13 MW 11/09/17 12:10 Wound Center Nurse 2 [Procedure/Treatment] #1- LT KNEE -Time 12:11 -Correct Patient Yes -Correct Side, Site, Position Yes -Correct Procedure Yes -Procedure Performed Yes -Type of Procedure Debridement -Clinical Debridement Subcutaneous -Post Debridement Size (cm) - Length 0.8 -Post Debridement Size (cm) - Width 3.0 -Post Debridement Size (cm) - Depth 1.0 -Total Square Cm 2.40 -Wound/Ulcer Outcome Not Healed -Ulcer Cleansing Rinsed/ Irrigated with Saline -Foul Odor after Cleansing No -Bioengineered Tissue No -Bleeding Controlled with Pressure -Treatment Response Procedure Tolerated Well [See Physician Procedure note for Specifics] Pain Scale: 0-10 Numeric [Pain] -Is Patient Pain Free? Yes Musculoskeletal: No Tenderness to Palpation of Joints or Extremities Lymphatic: No Cervical, Supraclavicular, or Inguinal Adenopathy Neurological: Cranial nerves II-XII grossly intact, Neuro grossly intact Psych/Mental Status: Normal Affect, Appropriate Debridement Note Post-Debridement Measurements/Treatment - Nurse 2 - General Ulcer CM Notes Start: 10/26/17 09:28 Freq: Status: Active Protocol: Activity Type Activity Date Activity User E-Sign Co-Sign Detail Recorded Client Recorded Date Recorded By Document 10/26/17 10:11 MW [id number] 10/26/17 10:17 MW Document 11/02/17 11:42 MW [id number] 11/02/17 11:53 MW Document 11/09/17 12:10 MW [id number] 11/09/17 12:13 MW 10/26/17 11/02/17 11/09/17 10:11 11:42 12:10 Wound Center Nurse 2 #1- LT KNEE -Time 10:12 11:42 12:11 -Correct Patient Yes Yes Yes -Correct Side, Site, Position Yes Yes Yes -Correct Procedure Yes Yes Yes -Procedure Performed Yes Yes Yes -Type of Procedure Debridement Debridement Debridement -Clinical Debridement Subcutaneous Subcutaneous Subcutaneous -Post Debridement Size (cm) - Length 1.7 1.2 0.8 -Post Debridement Size (cm) - Width 4.6 4.0 3.0 -Post Debridement Size (cm) - Depth 2.2 1.7 1.0 -Total Square Cm 7.82 4.80 2.40 -Wound/Ulcer Outcome Not Healed Not Healed Not Healed -Ulcer Cleansing Rinsed/ Rinsed/ Rinsed/ Irrigated with Irrigated with Irrigated with Saline Saline Saline -Foul Odor after Cleansing No No No -Bioengineered Tissue No No No -Bleeding Controlled with Pressure Pressure Pressure -Other tunnel @ 6 - 6. 4cm -Treatment Response Procedure Procedure Procedure Tolerated Well Tolerated Well Tolerated Well Pain Scale: 0-10 Numeric Is Patient Pain Free? Yes Yes Yes Wound debrided: Left knee wound Type of Debridement: Excisional debridement Anesthesia Used: 5% Lidocaine Gel Depth: Down to and including healthy tissue, in the subcutaneous layer Instrument Used: 7mm curette Tissue Removed: Fibrin Severity: Limited To Skin Breakdown Amount of bleeding with debridement: Moderate Bleeding Controlled with: Compression and gauze Patient tolerated procedure well Assessment/Plan Active Problems Renal failure (Acute) Traumatic wound dehiscence (Acute) Infected wound (Acute) Morbid obesity (Acute) Cellulitis, leg (Acute) Assessment: Open ulcer left knee. Dehiscence of a left knee. Morbid obesity. Renal failure. Malnutrition. Infected left knee. Cellulitis left knee Plan: Wash leg with Hibiclens. Increase wound VAC to 175 mmHg. Continue the antibiotics and the antimicrobials. Follow-up one week
== END 2017-11-11 23:59 ==
LOC: WC 11:30
PROVIDERS: Family Provider Internal Medicine; PCP Internal Medicine; Visit Provider Nurse Practitioner
DX: T81.33XA Disruption of traumatic injury wound repair, initial encounter (principal); Y83.8 Other surgical procedures as the cause of abnormal reaction of the patient, or of later complication, without mention of misadventure at the time of the procedure; E66.01 Morbid (severe) obesity due to excess calories; Z68.43 Body mass index [BMI] 50.0-59.9, adult; Z71.3 Dietary counseling and surveillance; E11.9 Type 2 diabetes mellitus without complications
CPT/HCPCS: 11042; 36415; 83036; 84134; 85025; 87070; 87075; 87077; 87186; 87205; 97605; 99203; G0463

== ENCOUNTER 2017-12-07 09:00 | Outpatient (RCR) | payer BC, MEDICAID, SELFPAY ==
[2017-11-12 01:41] VITALS: BP 157/113; PULSE 81; RESP 18; TEMP 36.6
[2017-11-16 09:20] VITALS: BP 146/89; PULSE 89; RESP 20; TEMP 36.7
--- NOTE | 2017-11-16 12:21 | PN.PCM_ITS ---
(1) Cellulitis, leg Status: Acute Current Visit: No Code(s): L03.119 - Cellulitis of unspecified part of limb (2) Infected wound Status: Acute Current Visit: No Code(s): T14.8XXA - Other injury of un specified body region, initial encounter; L08.9 - Local infection of the skin and subcutaneous tissue, unspecified (3) Morbid obesity Status: Acute Current Visit: No Code(s): E66.01 - Morbid (severe) obesity due to excess calories (4) Renal failure Status: Acute Current Visit: No Code(s): N19 - Unspecified kidney failure (5) Traumatic wound dehiscence Status: Acute Current Visit: No Qualifiers: Code(s): T81.33XA - Disruption of traumatic injury wound repair, initial encounter (6) Boil of lower extremity Status: Acute Current Visit: Yes Code(s): L02.429 - Furuncle of limb, unspecified Type of Wound Chief Complaint: Follow-up open ulcer left knee History of Wound: 47-year-old white female history of a fall approximately 5 weeks ago was sent to the emergency room where they sutured it and it dehisced 2 weeks later. Has been seen at [facility] and was given gauze to cover patient sustained a huge infection and now has an area inferior to the ulcer that is tender and warm and the skin is swollen. Cultures were obtained today. Patient is also a renal failure on dialysis patient she is also diabetic. And she is also morbid obese. We will also check lab work for her pre-albumin hemoglobin A1c and a complete blood count. Progress of Wound: The dehisced ulcer of the left knee is smaller using the wound VAC. We did increase her pressure to 175 and tunneling is gone. She still has developed that lump adjacent to the ulcer that is sore and fluctuant today. We washed it with Hibiclens I numbed her with 2% with epi and we I&D needed for a large large amount of pus and blood. Immediately coloring looked better and patient states she feels better pain was gone. We packed that with Aquacel silver strands and will continue the wound VAC to the left knee area. Patient did develop some excoriated skin around the ulcer we think it looks almost like maceration from the drainage. We will increase changes of every 3-4 days rather than waiting the week. Patient will return on Sunday for a nurse visit. - Physical Exam Vital Signs Temp Pulse Resp BP 98.0 F 89 20 H 146/89 H 11/16/17 09:20 11/16/17 09:20 11/16/17 09:20 11/16/17 09:20 General: Oriented x3, Cooperative, Well developed HEENT: Atraumatic, PERRLA Oral: Moist Mucosa Neck: Supple, No JVD Lungs: Clear to auscultation, Normal air movement Cardiovascular: Regular rate, Regular Rhythm Abdomen: Bowel Sounds Present, Soft, Non Tender, No Hepato-splenomegaly Extremities: No clubbing, No edema, - - Traumatic ulcer dehisced wound left knee and adjacent boil I &D Wound Measurements and Assessment WC - Nurse 1 - General Ulcer Measurement Start: 11/16/17 09:20 Freq: Status: Active Protocol: Activity Type Activity Date Activity User E-Sign Co-Sign Detail Recorded Client Recorded Date Recorded By Document 11/16/17 09:20 [id number] 11/16/17 09:22 11/16/17 09:20 Wound Center Nurse 1 [Ulcer Assessment] #1- LT KNEE -Combined with other wound No -Current Size (cm) - Length 0.9 -Current Size (cm) - Width 2.8 -Current Size (cm) - Depth 1.3 -Total Square Cm 2.52 -Photo Taken No -Epithelialization None Present -Tunneling No -Undermining/Tunneling No -Circular Undermining No -Exudate Amt Medium (34-66%) -Exudate Type Serosanguineous -Wound Margin Distinct, Outline Attached -Granulation Amt Medium (34-66%) -Granulation Quality Pale [place] Red -Slough/Fibrin Yes -Necrosis Amt None Present (0 %) -Necrotic Tissue Type Adherent Slough -Texture (Cassie-wound Skin Appearance) Assessed Scarring -Moisture (Cassie-wound Skin Appearance Maceration ) -Color (Cassie-wound Skin Appearance) Assessed Erythema -Temperature (Cassie-wound Skin No Abnormality Appearance) (Pt Warm) -Tenderness on Palpation (Cassie-wound Yes Skin Appearance) -Ulcer Cleansing Wound Cleanser -Foul Odor after Cleansing No -Anesthetic Used 4% Lidocaine Solution [Edema Assessment] -Lower Limb Edema Present NA - Nurse 2 - General Ulcer CM Notes Start: 11/16/17 09:20 Freq: Status: Active Protocol: Activity Type Activity Date Activity User E-Sign Co-Sign Detail Recorded Client Recorded Date Recorded By Document 11/16/17 09:31 MW [id number] 11/16/17 09:49 MW 11/16/17 09:31 Wound Center Nurse 2 [Procedure/Treatment] #2 LEFT MEDIAL KNEE I & D -Time 09:42 -Correct Patient Yes -Correct Side, Site, Position Yes -Correct Procedure Yes -Procedure Performed Yes -Type of Procedure Debridement -Clinical Debridement Subcutaneous -Post Debridement Size (cm) - Length 1.8 -Post Debridement Size (cm) - Width 0.5 -Post Debridement Size (cm) - Depth 1.5 -Total Square Cm 0.90 -Wound/Ulcer Outcome Not Healed -Ulcer Cleansing Rinsed/ Irrigated with Saline -Foul Odor after Cleansing No -Bioengineered Tissue No -Bleeding Controlled with Pressure -Treatment Response Procedure Tolerated Well #1- LT KNEE -Time 09:32 -Correct Patient Yes -Correct Side, Site, Position Yes -Correct Procedure Yes -Procedure Performed Yes -Type of Procedure Debridement -Clinical Debridement Subcutaneous -Post Debridement Size (cm) - Length 0.7 -Post Debridement Size (cm) - Width 2.4 -Post Debridement Size (cm) - Depth 0.7 -Total Square Cm 1.68 -Wound/Ulcer Outcome Not Healed -Ulcer Cleansing Rinsed/ Irrigated with Saline -Foul Odor after Cleansing No -Bioengineered Tissue No -Bleeding Controlled with Pressure -Treatment Response Procedure Tolerated Well [See Physician Procedure note for Specifics] Pain Scale: 0-10 Numeric [Pain] -Is Patient Pain Free? Yes Musculoskeletal: No Tenderness to Palpation of Joints or Extremities Lymphatic: No Cervical, Supraclavicular, or Inguinal Adenopathy Neurological: Cranial nerves II-XII grossly intact, Neuro grossly intact Psych/Mental Status: Normal Affect, Appropriate Debridement Note Post-Debridement Measurements/Treatment WC - Nurse 2 - General Ulcer CM Notes Start: 11/16/17 09:20 Freq: Status: Active Protocol: Activity Type Activity Date Activity User E-Sign Co-Sign Detail Recorded Client Recorded Date Recorded By Document 11/16/17 09:31 MW [id number] 11/16/17 09:49 MW 11/16/17 09:31 Wound Center Nurse 2 #2 LEFT MEDIAL KNEE I & D -Time 09:42 -Correct Patient Yes -Correct Side, Site, Position Yes -Correct Procedure Yes -Procedure Performed Yes -Type of Procedure Debridement -Clinical Debridement Subcutaneous -Post Debridement Size (cm) - Length 1.8 -Post Debridement Size (cm) - Width 0.5 -Post Debridement Size (cm) - Depth 1.5 -Total Square Cm 0.90 -Wound/Ulcer Outcome Not Healed -Ulcer Cleansing Rinsed/ Irrigated with Saline -Foul Odor after Cleansing No -Bioengineered Tissue No -Bleeding Controlled with Pressure -Treatment Response Procedure Tolerated Well #1- LT KNEE -Time 09:32 -Correct Patient Yes -Correct Side, Site, Position Yes -Correct Procedure Yes -Procedure Performed Yes -Type of Procedure Debridement -Clinical Debridement Subcutaneous -Post Debridement Size (cm) - Length 0.7 -Post Debridement Size (cm) - Width 2.4 -Post Debridement Size (cm) - Depth 0.7 -Total Square Cm 1.68 -Wound/Ulcer Outcome Not Healed -Ulcer Cleansing Rinsed/ Irrigated with Saline -Foul Odor after Cleansing No -Bioengineered Tissue No -Bleeding Controlled with Pressure -Treatment Response Procedure Tolerated Well Pain Scale: 0-10 Numeric Is Patient Pain Free? Yes Wound debrided: Left knee ulcer Type of Debridement: Excisional debridement Anesthesia Used: 5% Lidocaine Gel Depth: Down to and including healthy tissue, in the subcutaneous layer Percentage of wound debrided: 100 Instrument Used: 7mm curette Tissue Removed: Fibrin Severity: Limited To Skin Breakdown Amount of bleeding with debridement: Mild Bleeding Controlled with: Compression and gauze Patient tolerated procedure well - Additional Wound Wound debrided: Medial boil I&D Type of Debridement: Excisional debridement Depth: in the subcutaneous layer Percentage of wound debrided: 100 Instrument Used: #15 blade Tissue Removed: Pus and blood Severity: Fat Layer Exposed Amount of bleeding with debridement: Moderate Bleeding Controlled with: - - Aquacel silver strands packed Patient tolerated procedure: Patient tolerated procedure well Assessment/Plan Active Problems Boil of lower extremity (Acute) Assessment: Open ulcer left knee. Dehiscence of a left knee. Morbid obesity. Renal failure. Malnutrition resolved. Infected left knee. I&D of the left knee boil. Cellulitis left knee Plan: Wash leg with Hibiclens. Increase wound VAC to 175 mmHg. Continue the antibiotics and the antimicrobials. Pack boil area with Aquacel rope cover with gauze and tape daily. Follow-up one week
[2017-11-20 09:36] VITALS: BP 128/61; PULSE 82; RESP 16; TEMP 36.7
[2017-11-23 09:23] VITALS: BP 152/115; PULSE 89; RESP 18; TEMP 36.4
--- NOTE | 2017-11-23 11:41 | PCM.WC.PN ---
(1) Cellulitis, leg Status: Acute Current Visit: Yes Code(s): L03.119 - Cellulitis of unspecified part of limb (2) Infected wound Status: Acute Current Visit: Yes Code(s): T14.8XXA - Other injury of unspecified body region, initial encounter; L08.9 - Local infection of the skin and subcutaneous tissue, unspecified (3) Morbid obesity Status: Acute Current Visit: Yes Code(s): E66.01 - Morbid (severe) obesity due to excess calories (4) Renal failure Status: Acute Current Visit: Yes Code(s): N19 - Unspecified kidney failure (5) Traumatic wound dehiscence Status: Acute Current Visit: Yes Qualifiers: Code(s): T81.33XA - Disruption of traumatic injury wound repair, initial encounter (6) Boil of lower extremity Status: Acute Current Visit: Yes Code(s): L02.429 - Furuncle of limb, unspecified Type of Wound Chief Complaint: Follow-up open ulcer left knee History of Wound: 47-year-old white female history of a fall approximately 5 weeks ago was sent to the emergency room where they sutured it and it dehisced 2 weeks later. Has been seen at [place] [facility] and was given gauze to cover patient sustained a huge infection and now has an area inferior to the ulcer that is tender and warm and the skin is swollen. Cultures were obtained today. Patient is also a renal failure on dialysis patient she is also diabetic. And she is also morbid obese. We will also check lab work for her pre-albumin hemoglobin A1c and a complete blood count. Progress of Wound: The dehisced ulcer of the left knee is smaller using the wound VAC. We did increase her pressure to 175 and tunneling is gone. She develops a yeast type infection from we think it got wet underneath the clear wrap from the wound VAC and has caused a lot of skin irritation to make it almost impossible for her to use the wound VAC. We I&D the last week the lump adjacent to the left knee wound and it is still open and deep and not draining anything right now but blood and cultures came back negative. We will continue to pack with Aquacel silver strands and will change the other care to Promogran to the left knee. And discontinue the wound VAC. Patient will be seen next week for follow-up and I will see her the following week. - Physical Exam Vital Signs Temp Pulse Resp BP 97.5 F L 89 18 152/115 H 11/23/17 09:23 11/23/17 09:23 11/23/17 09:23 11/23/17 09:23 General: Oriented x3, Cooperative, Well developed HEENT: Atraumatic, PERRLA Oral: Moist Mucosa Neck: Supple, No JVD Lungs: Clear to auscultation, Normal air movement Cardiovascular: Regular rate, Regular Rhythm Abdomen: Bowel Sounds Present, Soft, Non Tender, No Hepato-splenomegaly Extremities: No clubbing, No edema, - - Left knee and adjacent to left knee wounds Wound Measurements and Assessment WC - Nurse 1 - General Ulcer Measurement Start: 11/16/17 09:20 Freq: Status: Active Protocol: Activity Type Activity Date Activity User E-Sign Co-Sign Detail Recorded Client Recorded Date Recorded By Document 11/23/17 09:23 TN [id number] 11/23/17 09:34 TN 11/23/17 09:23 Wound Center Nurse 1 [Ulcer Assessment] #2 LEFT MEDIAL KNEE I & D -Combined with other wound No -Current Size (cm) - Length 1.5 -Current Size (cm) - Width 1 -Current Size (cm) - Depth 2 -Total Square Cm 1.5 -Photo Taken No -Epithelialization None Present -Tunneling No -Undermining/Tunneling No -Circular Undermining No -Classification - Thickness Full Thickness without Exposed Support Structure -Change in Wound Grade/Stage No Query Text:If change please identify the Stage/Grade in the comment (ie. S2 G3) -Exudate Amt Large (67-100%) -Exudate Type Serosanguineous -Wound Margin Distinct, Outline Attached -Granulation Amt Large (67-100%) -Granulation Quality Red -Slough/Fibrin Yes -Necrotic Tissue Type Adherent Slough -Structure Exposed None/Limited to Skin Breakdown -Texture (Cassie-wound Skin Appearance) Assessed Localized Edema -Moisture (Cassie-wound Skin Appearance Assessed ) Dry/Scaly -Color (Cassie-wound Skin Appearance) Assessed Erythema -Temperature (Cassie-wound Skin No Abnormality Appearance) (Pt Warm) -Tenderness on Palpation (Cassie-wound No Skin Appearance) -Ulcer Cleansing Rinsed/ Irrigated with Saline -Foul Odor after Cleansing No -Anesthetic Used 4% Lidocaine Solution #1- LT KNEE -Combined with other wound No -Current Size (cm) - Length 0.9 -Current Size (cm) - Width 2.2 -Current Size (cm) - Depth 0.3 -Total Square Cm 1.98 -Photo Taken No -Epithelialization None Present -Tunneling No -Undermining/Tunneling No -Circular Undermining No -Classification - Thickness Full Thickness without Exposed Support Structure -Change in Wound Grade/Stage No Query Text:If change please identify the Stage/Grade in the comment (ie. S2 G3) -Exudate Amt Small (1-33%) -Exudate Type Serous -Wound Margin Distinct, Outline Attached -Granulation Amt Small (1-33%) -Granulation Quality Pale -Slough/Fibrin Yes -Necrotic Tissue Type Adherent Slough -Structure Exposed None/Limited to Skin Breakdown -Texture (Cassie-wound Skin Appearance) Assessed Scarring -Moisture (Cassie-wound Skin Appearance Assessed ) Dry/Scaly -Color (Cassie-wound Skin Appearance) No Abnormality Assessed -Temperature (Cassie-wound Skin No Abnormality Appearance) (Pt Warm) -Tenderness on Palpation (Cassie-wound No Skin Appearance) -Ulcer Cleansing Rinsed/ Irrigated with Saline -Foul Odor after Cleansing No -Anesthetic Used 4% Lidocaine Solution [Edema Assessment] -Lower Limb Edema Present No WC - Nurse 2 - General Ulcer CM Notes Start: 11/16/17 09:20 Freq: Status: Active Protocol: Activity Type Activity Date Activity User E-Sign Co-Sign Detail Recorded Client Recorded Date Recorded By Document 11/23/17 09:41 MW [id number] 11/23/17 09:46 MW 11/23/17 09:41 Wound Center Nurse 2 [Procedure/Treatment] #2 LEFT MEDIAL KNEE I & D -Time 09:43 -Correct Patient Yes -Correct Side, Site, Position Yes -Correct Procedure Yes -Procedure Performed Yes -Type of Procedure Debridement -Clinical Debridement Subcutaneous -Post Debridement Size (cm) - Length 0.7 -Post Debridement Size (cm) - Width 0.5 -Post Debridement Size (cm) - Depth 1.4 -Total Square Cm 0.35 -Wound/Ulcer Outcome Not Healed -Ulcer Cleansing Rinsed/ Irrigated with Saline -Foul Odor after Cleansing No -Bioengineered Tissue No -Bleeding Controlled with Pressure -Treatment Response Procedure Tolerated Well #1- LT KNEE -Time 09:42 -Correct Patient Yes -Correct Side, Site, Position Yes -Correct Procedure Yes -Procedure Performed Yes -Type of Procedure Debridement -Clinical Debridement Subcutaneous -Post Debridement Size (cm) - Length 0.5 -Post Debridement Size (cm) - Width 1.5 -Post Debridement Size (cm) - Depth 0.4 -Total Square Cm 0.75 -Wound/Ulcer Outcome Not Healed -Ulcer Cleansing Rinsed/ Irrigated with Saline -Foul Odor after Cleansing No -Bioengineered Tissue No -Bleeding Controlled with Pressure -Treatment Response Procedure Tolerated Well [See Physician Procedure note for Specifics] Pain Scale: 0-10 Numeric [Pain] -Is Patient Pain Free? Yes Musculoskeletal: No Tenderness to Palpation of Joints or Extremities Lymphatic: No Cervical, Supraclavicular, or Inguinal Adenopathy Neurological: Cranial nerves II-XII grossly intact, Neuro grossly intact Psych/Mental Status: Normal Affect, Appropriate Debridement Note Post-Debridement Measurements/Treatment WC - Nurse 2 - General Ulcer CM Notes Start: 11/16/17 09:20 Freq: Status: Active Protocol: Activity Type Activity Date Activity User E-Sign Co-Sign Detail Recorded Client Recorded Date Recorded By Document 11/16/17 09:31 MW [id number] 11/16/17 09:49 MW Document 11/23/17 09:41 MW [id number] 11/23/17 09:46 MW 11/16/17 11/23/17 09:31 09:41 Wound Center Nurse 2 #2 LEFT MEDIAL KNEE I & D -Time 09:42 09:43 -Correct Patient Yes Yes -Correct Side, Site, Position Yes Yes -Correct Procedure Yes Yes -Procedure Performed Yes Yes -Type of Procedure Debridement Debridement -Clinical Debridement Subcutaneous Subcutaneous -Post Debridement Size (cm) - Length 1.8 0.7 -Post Debridement Size (cm) - Width 0.5 0.5 -Post Debridement Size (cm) - Depth 1.5 1.4 -Total Square Cm 0.90 0.35 -Wound/Ulcer Outcome Not Healed Not Healed -Ulcer Cleansing Rinsed/ Rinsed/ Irrigated with Irrigated with Saline Saline -Foul Odor after Cleansing No No -Bioengineered Tissue No No -Bleeding Controlled with Pressure Pressure -Treatment Response Procedure Procedure Tolerated Well Tolerated Well #1- LT KNEE -Time 09:32 09:42 -Correct Patient Yes Yes -Correct Side, Site, Position Yes Yes -Correct Procedure Yes Yes -Procedure Performed Yes Yes -Type of Procedure Debridement Debridement -Clinical Debridement Subcutaneous Subcutaneous -Post Debridement Size (cm) - Length 0.7 0.5 -Post Debridement Size (cm) - Width 2.4 1.5 -Post Debridement Size (cm) - Depth 0.7 0.4 -Total Square Cm 1.68 0.75 -Wound/Ulcer Outcome Not Healed Not Healed -Ulcer Cleansing Rinsed/ Rinsed/ Irrigated with Irrigated with Saline Saline -Foul Odor after Cleansing No No -Bioengineered Tissue No No -Bleeding Controlled with Pressure Pressure -Treatment Response Procedure Procedure Tolerated Well Tolerated Well Pain Scale: 0-10 Numeric Is Patient Pain Free? Yes Yes Wound debrided: Left knee wound Type of Debridement: Excisional debridement Depth: Down to and including healthy tissue, in the subcutaneous layer Percentage of wound debrided: 100 Instrument Used: 7mm curette Tissue Removed: Fibrin Amount of bleeding with debridement: Mild Bleeding Controlled with: Compression and gauze Patient tolerated procedure well - Additional Wound Wound debrided: Medial adjacent to left knee wound I&D of boil Type of Debridement: Excisional debridement Anesthesia Used: 4% Lidocaine Solution Depth: Down to and including healthy tissue, in the subcutaneous layer Percentage of wound debrided: 100 Instrument Used: 7mm curette Tissue Removed: Fibrin Severity: Limited To Skin Breakdown Amount of bleeding with debridement: Moderate Bleeding Controlled with: Pressure Patient tolerated procedure: Patient tolerated procedure well Assessment/Plan Active Problems Renal failure (Acute) Traumatic wound dehiscence (Acute) Infected wound (Acute) Morbid obesity (Acute) Cellulitis, leg (Acute) Boil of lower extremity (Acute) Assessment: Open ulcer left knee. Dehiscence of a left knee. Morbid obesity. Renal failure. Malnutrition resolved. Infected left knee. I&D of the left knee boil. Cellulitis left knee Plan: Wash leg with Hibiclens. Stop the wound VAC and start continue packing with Promogran to left knee. Continue pack boil area with Aquacel rope cover with gauze and tape daily. Follow-up 2 week
[2017-12-07 08:53] VITALS: RESP 18; TEMP 35.6
--- NOTE | 2017-12-07 11:00 | PN.PCM_ITS ---
(1) Cellulitis, leg Status: Acute Current Visit: No Code(s): L03.119 - Cellulitis of unspecified part of limb (2) Infected wound Status: Acute Current Visit: No Code(s): T14.8XXA - Other injury of un specified body region, initial encounter; L08.9 - Local infection of the skin and subcutaneous tissue, unspecified (3) Morbid obesity Status: Acute Current Visit: Yes Code(s): E66.01 - Morbid (severe) obesity due to excess calories (4) Renal failure Status: Acute Current Visit: Yes Code(s): N19 - Unspecified kidney failure (5) Traumatic wound dehiscence Status: Acute Current Visit: Yes Qualifiers: Code(s): T81.33XA - Disruption of traumatic injury wound repair, initial encounter (6) Boil of lower extremity Status: Acute Current Visit: Yes Code(s): L02.429 - Furuncle of limb, unspecified Type of Wound Chief Complaint: Follow-up open ulcer left knee History of Wound: 47-year-old white female history of a fall approximately 5 weeks ago was sent to the emergency room where they sutured it and it dehisced 2 weeks later. Has been seen at [place] [facility] and was given gauze to cover patient sustained a huge infection and now has an area inferior to the ulcer that is tender and warm and the skin is swollen. Cultures were obtained today. Patient is also a renal failure on dialysis patient she is also diabetic. And she is also morbid obese. We will also check lab work for her pre-albumin hemoglobin A1c and a complete blood count. Progress of Wound: Today both wounds are healed and patient will be discharged from the wound center - Physical Exam Vital Signs Temp Pulse Resp BP 96.1 F L 89 18 152/115 H 12/07/17 08:53 11/23/17 09:23 12/07/17 08:53 11/23/17 09:23 General: Oriented x3, Cooperative, Well developed HEENT: Atraumatic, PERRLA Oral: Moist Mucosa Neck: Supple, No JVD Lungs: Clear to auscultation, Normal air movement Cardiovascular: Regular rate, Regular Rhythm Abdomen: Bowel Sounds Present, Soft, Non Tender, No Hepato-splenomegaly Extremities: No clubbing, No edema Skin: Ulcer/ Wound - Left knee and lateral boil I&D post surgery Wound Measurements and Assessment WC - Nurse 1 - General Ulcer Measurement Start: 11/16/17 09:20 Freq: Status: Active Protocol: Activity Type Activity Date Activity User E-Sign Co-Sign Detail Recorded Client Recorded Date Recorded By Document 12/07/17 08:53 [id number] 12/07/17 09:00 12/07/17 08:53 Wound Center Nurse 1 [Ulcer Assessment] #2 LEFT MEDIAL KNEE I & D -Combined with other wound No -Current Size (cm) - Length 1.0 -Current Size (cm) - Width 0.1 -Current Size (cm) - Depth 0.1 -Total Square Cm 0.10 -Photo Taken No -Epithelialization None Present -Tunneling No -Undermining/Tunneling No -Circular Undermining No -Exudate Amt Small (1-33%) -Exudate Type Serosanguineous -Wound Margin Distinct, Outline Attached -Granulation Amt Small (1-33%) -Granulation Quality Red -Slough/Fibrin Yes -Necrosis Amt Medium (34-66%) -Necrotic Tissue Type Adherent Slough -Texture (Cassie-wound Skin Appearance) Assessed Scarring -Moisture (Cassie-wound Skin Appearance Assessed ) Dry/Scaly -Color (Cassie-wound Skin Appearance) No Abnormality Assessed -Temperature (Cassie-wound Skin No Abnormality Appearance) (Pt Warm) -Tenderness on Palpation (Cassie-wound No Skin Appearance) -Ulcer Cleansing Rinsed/ Irrigated with Saline -Foul Odor after Cleansing No -Anesthetic Used 4% Lidocaine Solution #1- LT KNEE -Combined with other wound No -Current Size (cm) - Length 0.5 -Current Size (cm) - Width 1.5 -Current Size (cm) - Depth 0.1 -Total Square Cm 0.75 -Photo Taken No -Epithelialization None Present -Tunneling No -Undermining/Tunneling No -Circular Undermining No -Exudate Amt Small (1-33%) -Exudate Type Serosanguineous -Wound Margin Distinct, Outline Attached -Granulation Amt Small (1-33%) -Granulation Quality Red -Slough/Fibrin Yes -Necrosis Amt Small (1-33%) -Necrotic Tissue Type Adherent Slough -Texture (Cassie-wound Skin Appearance) Assessed Scarring -Moisture (Cassie-wound Skin Appearance Assessed ) Dry/Scaly -Color (Cassie-wound Skin Appearance) No Abnormality Assessed -Temperature (Cassie-wound Skin No Abnormality Appearance) (Pt Warm) -Tenderness on Palpation (Cassie-wound No Skin Appearance) -Ulcer Cleansing Rinsed/ Irrigated with Saline -Foul Odor after Cleansing No -Anesthetic Used 4% Lidocaine Solution WC - Nurse 2 - General Ulcer CM Notes Start: 11/16/17 09:20 Freq: Status: Active Protocol: Activity Type Activity Date Activity User E-Sign Co-Sign Detail Recorded Client Recorded Date Recorded By Document 12/07/17 09:26 MW [id number] 12/07/17 09:28 MW 12/07/17 09:26 Wound Center Nurse 2 [Procedure/Treatment] #2 LEFT MEDIAL KNEE I & D -Time 09:26 -Correct Patient Yes -Correct Side, Site, Position Yes -Correct Procedure Yes -Procedure Performed No -Post Debridement Size (cm) - Length 0 -Post Debridement Size (cm) - Width 0 -Post Debridement Size (cm) - Depth 0 -Total Square Cm 0 -Wound/Ulcer Outcome Healed- Epithelialized -Ulcer Cleansing Not Cleansed -Foul Odor after Cleansing No -Bioengineered Tissue No -Bleeding Controlled with NA -Treatment Response Procedure Tolerated Well #1- LT KNEE -Time 09:27 -Correct Patient Yes -Correct Side, Site, Position Yes -Correct Procedure Yes -Procedure Performed No -Post Debridement Size (cm) - Length 0 -Post Debridement Size (cm) - Width 0 -Post Debridement Size (cm) - Depth 0 -Total Square Cm 0 -Wound/Ulcer Outcome Healed- Epithelialized -Ulcer Cleansing Not Cleansed -Foul Odor after Cleansing No -Bioengineered Tissue No -Bleeding Controlled with NA -Treatment Response Procedure Tolerated Well [See Physician Procedure note for Specifics] Pain Scale: 0-10 Numeric [Pain] -Is Patient Pain Free? Yes Musculoskeletal: No Tenderness to Palpation of Joints or Extremities Lymphatic: No Cervical, Supraclavicular, or Inguinal Adenopathy Neurological: Cranial nerves II-XII grossly intact, Neuro grossly intact Psych/Mental Status: Normal Affect, Appropriate Debridement Note Post-Debridement Measurements/Treatment KATIA - Nurse 2 - General Ulcer CM Notes Start: 11/16/17 09:20 Freq: Status: Active Protocol: Activity Type Activity Date Activity User E-Sign Co-Sign Detail Recorded Client Recorded Date Recorded By Document 11/16/17 09:31 MW [id number] 11/16/17 09:49 MW Document 11/23/17 09:41 MW [id number] 11/23/17 09:46 MW Document 12/07/17 09:26 MW [id number] 12/07/17 09:28 MW 11/16/17 11/23/17 12/07/17 09:31 09:41 09:26 Wound Center Nurse 2 #2 LEFT MEDIAL KNEE I & D -Time 09:42 09:43 09:26 -Correct Patient Yes Yes Yes -Correct Side, Site, Position Yes Yes Yes -Correct Procedure Yes Yes Yes -Procedure Performed Yes Yes No -Type of Procedure Debridement Debridement -Clinical Debridement Subcutaneous Subcutaneous -Post Debridement Size (cm) - Length 1.8 0.7 0 -Post Debridement Size (cm) - Width 0.5 0.5 0 -Post Debridement Size (cm) - Depth 1.5 1.4 0 -Total Square Cm 0.90 0.35 0 -Wound/Ulcer Outcome Not Healed Not Healed Healed- Epithelialized -Ulcer Cleansing Rinsed/ Rinsed/ Not Cleansed Irrigated with Irrigated with Saline Saline -Foul Odor after Cleansing No No No -Bioengineered Tissue No No No -Bleeding Controlled with Pressure Pressure NA -Treatment Response Procedure Procedure Procedure Tolerated Well Tolerated Well Tolerated Well #1- LT KNEE -Time 09:32 09:42 09:27 -Correct Patient Yes Yes Yes -Correct Side, Site, Position Yes Yes Yes -Correct Procedure Yes Yes Yes -Procedure Performed Yes Yes No -Type of Procedure Debridement Debridement -Clinical Debridement Subcutaneous Subcutaneous -Post Debridement Size (cm) - Length 0.7 0.5 0 -Post Debridement Size (cm) - Width 2.4 1.5 0 -Post Debridement Size (cm) - Depth 0.7 0.4 0 -Total Square Cm 1.68 0.75 0 -Wound/Ulcer Outcome Not Healed Not Healed Healed- Epithelialized -Ulcer Cleansing Rinsed/ Rinsed/ Not Cleansed Irrigated with Irrigated with Saline Saline -Foul Odor after Cleansing No No No -Bioengineered Tissue No No No -Bleeding Controlled with Pressure Pressure NA -Treatment Response Procedure Procedure Procedure Tolerated Well Tolerated Well Tolerated Well Pain Scale: 0-10 Numeric Is Patient Pain Free? Yes Yes Yes No debridement was completed today Assessment/Plan Active Problems Renal failure (Acute) Traumatic wound dehiscence (Acute) Morbid obesity (Acute) Boil of lower extremity (Acute) Assessment: Open ulcer left knee resolved. Dehiscence of a left knee resolved. Morbid obesity. Renal failure. Malnutrition resolved. Infected left knee. I&D of the left knee boil. Cellulitis left knee Plan: Discharge from the wound center follow-up as needed
== END 2017-12-12 23:59 ==
LOC: WC 09:00
PROVIDERS: Family Provider Internal Medicine; PCP Internal Medicine; Referring Provider Nurse Practitioner; Visit Provider Nurse Practitioner
DX: T81.33XA Disruption of traumatic injury wound repair, initial encounter (principal); L03.119 Cellulitis of unspecified part of limb; E66.01 Morbid (severe) obesity due to excess calories; Z68.43 Body mass index [BMI] 50.0-59.9, adult; Z71.3 Dietary counseling and surveillance; L02.429 Furuncle of limb, unspecified; E11.9 Type 2 diabetes mellitus without complications
CPT/HCPCS: 10060; 11042; 87070; 87075; 87205; 97605; 99212; 99213; G0463